=== PATIENT | female | born 1940 ===

== ENCOUNTER 2017-10-05 18:35 | Inpatient (IN) | payer MEDICARE ==
[~2017-10-05] VITALS: Ht 162.6 cm; Wt 58.5 kg
[2017-10-05 19:25] LABS: BASOPHILS # (AUTO) 0.03 x10^3/uL (0-0.1); BASOPHILS % (AUTO) 0 % (0-1); EOSINOPHILS # (AUTO) 0.07 x10^3/uL (0-0.4); EOSINOPHILS % (AUTO) 1 % (1-7); LYMPHOCYTES # (AUTO) 2.35 x10^3/uL (1-3.4); LYMPHOCYTES % (AUTO) 27 % (22-44); MD NO; MEAN CORPUSCULAR HEMOGLOBIN 30.5 pg (27.0-34.8); MEAN CORPUSCULAR HGB CONC 33.5 g/dL (32.4-35.8); MEAN PLATELET VOLUME 7.9 fL (7.4-10.4); MONOCYTES # (AUTO) 0.42 x10^3/uL (0.2-0.8); MONOCYTES % (AUTO) 5 % (2-9); NEUTROPHILS # (AUTO) 5.93 x10^3/uL (1.8-6.8); NEUTROPHILS % (AUTO) 67 % (42-75); PLATELET COUNT 447 x10^3/uL (130-400); RED BLOOD COUNT 4.74 x10^6/uL (3.82-5.3); RED CELL DISTRIBUTION WIDTH 14.1 % (9.6-15.2)
[2017-10-05] MEDS ORDERED: PIOG30TA4 PO (19:29)
[2017-10-05] MEDS ORDERED: HYDR25TA6 PO (19:29)
[2017-10-05] MEDS ORDERED: CALC-47 PO (19:29)
[2017-10-05] MEDS ORDERED: SIMV10TA3 PO (19:29)
[2017-10-05] MEDS ORDERED: LIRA0.6P SQ-INSULIN (19:29)
[2017-10-05] MEDS ORDERED: DAPA1TAB5 PO (19:29)
[2017-10-05] MEDS ORDERED: CHOL200074 PO (19:29)
[2017-10-05] MEDS ORDERED: LOSA25TA5 PO (19:29)
[2017-10-05] MEDS ORDERED: ONDANSETRON 2MG/ML, 2ML IVPush ONE (19:30)
[2017-10-05] MEDS ORDERED: SODIUM CHLORIDE 0.9% 1,000ML IVBOLUS ONE (19:30)
[2017-10-05 19:35] LABS: ALANINE AMINOTRANSFERASE 20 U/L (12-78); CALCIUM 10.2 mg/dL (8.5-10.1); CREATININE 1.51 mg/dL (0.55-1.02)
[2017-10-05 19:38] LABS: ALKALINE PHOSPHATASE 35 U/L (45-117); BILIRUBIN,TOTAL 0.6 mg/dL (0.2-1.0)
[2017-10-05 19:51] LABS: ALBUMIN 4.1 g/dL (3.4-5.0); ANION GAP 14 mmol/L (5-15); CHLORIDE 98 mmol/L (98-107)
[2017-10-05 19:53] LABS: TOTAL PROTEIN 8.1 g/dL (6.4-8.2)
[2017-10-05] MEDS ORDERED: ACETAMINOPHEN 500 MG TABLET PO ONE (20:00)
[2017-10-05 20:36] LABS: CULTURE INDICATED? YES; MICROSCOPIC INDICATED
[2017-10-05] MEDS ORDERED: OMNIPAQUE 350 MG/ML, 100ML BOTTLE ONE (21:40)
[2017-10-05] MEDS ORDERED: ONDANSETRON ODT 4 MG ONE (21:46)
[2017-10-05] MEDS ORDERED: ACETAMINOPHEN 500 MG TABLET ONE (21:46)
[2017-10-05] MEDS ORDERED: CEFTRIAXONE 1,000 MG IM ONE (22:30)
[2017-10-05] MEDS ORDERED: LIDOCAINE-MPF 1%, 2ML ONE (22:31)
[2017-10-05] MEDS ORDERED: CEFTRIAXONE 1,000 MG ONE (22:31)
[2017-10-05] MEDS ORDERED: CEFTRIAXONE PMX 1GM/50ML 50 ML ONE (22:35)
[2017-10-05] MEDS ORDERED: CEFTRIAXONE PMX 1GM/50ML 50 ML IV ONE (23:00)
[2017-10-06] VITALS: BP 104/67
[2017-10-06] MEDS ORDERED: DOCUSATE 100 MG CAPSULE PO PRN
[2017-10-06] MEDS ORDERED: LABETALOL 5MG/ML, 20ML IVPush PRN
[2017-10-06] MEDS ORDERED: BISACODYL 10 MG SUPP PR PRN
[2017-10-06] MEDS ORDERED: ONDANSETRON ODT 4 MG PO PRN
[2017-10-06] MEDS ORDERED: ONDANSETRON 2MG/ML, 2ML IVPush PRN
[2017-10-06 00:28] LABS: HEMOGLOBIN A1C 7.7 % (4.2-6.3)
[2017-10-06] MEDS: SODIUM CHLORIDE 0.9% 1,000 ML IV SCH ×2 (00:44→11:00)
[2017-10-06] MEDS: HEPARIN 5,000 UNITS/ML, 1ML SQ SCH ×3 (00:44→16:00)
[2017-10-06 05:09] LABS: BASOPHILS # (AUTO) 0.03 x10^3/uL (0-0.1); BASOPHILS % (AUTO) 0 % (0-1); EOSINOPHILS # (AUTO) 0.07 x10^3/uL (0-0.4); EOSINOPHILS % (AUTO) 1 % (1-7); LYMPHOCYTES # (AUTO) 2.15 x10^3/uL (1-3.4); LYMPHOCYTES % (AUTO) 36 % (22-44); MD NO; MEAN CORPUSCULAR HEMOGLOBIN 30.2 pg (27.0-34.8); MEAN CORPUSCULAR HGB CONC 33.8 g/dL (32.4-35.8); MEAN CORPUSCULAR VOLUME 89.3 fL (80-100); MEAN PLATELET VOLUME 7.9 fL (7.4-10.4); MONOCYTES # (AUTO) 0.27 x10^3/uL (0.2-0.8); MONOCYTES % (AUTO) 5 % (2-9); NEUTROPHILS # (AUTO) 3.49 x10^3/uL (1.8-6.8); NEUTROPHILS % (AUTO) 58 % (42-75); PLATELET COUNT 388 x10^3/uL (130-400); RED BLOOD COUNT 4.11 x10^6/uL (3.82-5.3); RED CELL DISTRIBUTION WIDTH 13.7 % (9.6-15.2)
[2017-10-06 05:16] LABS: CHLORIDE 103 mmol/L (98-107)
[2017-10-06 05:28] LABS: ALANINE AMINOTRANSFERASE 17 U/L (12-78); ALBUMIN 3.1 g/dL (3.4-5.0); ALKALINE PHOSPHATASE 27 U/L (45-117); ANION GAP 13 mmol/L (5-15); BILIRUBIN,TOTAL 0.4 mg/dL (0.2-1.0); CALCIUM 8.6 mg/dL (8.5-10.1); CHOL/HDL RATIO 1.8; CHOLESTEROL, TOTAL 87 mg/dL (140-239); CREATININE 1.11 mg/dL (0.55-1.02); HDL CHOL % 55 % (28-40); HDL CHOLESTEROL (DIRECT) 48 mg/dL (40-60); LDL CHOLESTEROL,CALCULATED 17 mg/dL (54-169); LDL/HDL RATIO 0.4 (0.5-3.0); TOTAL PROTEIN 6.6 g/dL (6.4-8.2); TRIGLYCERIDES 108 mg/dL (50-200); VLDL CHOLESTEROL 22 mg/dL (0-25)
[2017-10-06] MEDS: INSULIN LISPRO 100 UNITS/ML, PEN SQ-INSULIN SCH ×4 (07:00→21:00)
[2017-10-06 07:25] VITALS: BP 110/65
[2017-10-06] MEDS ORDERED: POTASSIUM CHLORIDE 20 MEQ TAB.ER.PRT PO ONE (07:30)
[2017-10-06] MEDS: SENNA/DOCUSATE TABLET PO SCH (08:45)
[2017-10-06] MEDS: CHOLECALCIFEROL 1,000 UNIT TABLET PO SCH (08:45)
[2017-10-06] MEDS ORDERED: CALCIUM/VITAMIN D3 250-125 TABLET PO SCH (09:00)
[2017-10-06] MEDS ORDERED: CEFTRIAXONE PMX 1GM/50ML 50 ML IV SCH (14:00)
[2017-10-06] MEDS: CEFTRIAXONE 1,000 MG in SODIUM CHLORIDE 0.9% 50 ML IV SCH (14:57)
[2017-10-06] MEDS: NS + 20MEQ KCL 1,000 ML IV SCH (14:58)
[2017-10-06 15:40] VITALS: BP 139/75
[2017-10-06] MEDS ORDERED: hydrALAzine 20 MG/ML, 1ML IV PRN (17:00)
[2017-10-06 18:58] VITALS: BP 121/67
[2017-10-06] MEDS: SIMVASTATIN 10 MG TABLET PO SCH (21:25)
[2017-10-07 00:52] VITALS: BP 116/68
[2017-10-07] MEDS: HEPARIN 5,000 UNITS/ML, 1ML SQ SCH ×3 (00:54→18:33)
[2017-10-07] MEDS: NS + 20MEQ KCL 1,000 ML IV SCH ×2 (00:54→18:33)
[2017-10-07 05:27] LABS: ANION GAP 7 mmol/L (5-15); CALCIUM 8.5 mg/dL (8.5-10.1); CHLORIDE 108 mmol/L (98-107); CREATININE 0.64 mg/dL (0.55-1.02)
[2017-10-07 05:29] LABS: BASOPHILS # (AUTO) 0.04 x10^3/uL (0-0.1); BASOPHILS % (AUTO) 1 % (0-1); EOSINOPHILS # (AUTO) 0.13 x10^3/uL (0-0.4); EOSINOPHILS % (AUTO) 2 % (1-7); LYMPHOCYTES # (AUTO) 2.12 x10^3/uL (1-3.4); LYMPHOCYTES % (AUTO) 39 % (22-44); MD NO; MEAN CORPUSCULAR HEMOGLOBIN 30.5 pg (27.0-34.8); MEAN CORPUSCULAR HGB CONC 33.7 g/dL (32.4-35.8); MEAN CORPUSCULAR VOLUME 90.4 fL (80-100); MEAN PLATELET VOLUME 7.9 fL (7.4-10.4); MONOCYTES # (AUTO) 0.32 x10^3/uL (0.2-0.8); MONOCYTES % (AUTO) 6 % (2-9); NEUTROPHILS # (AUTO) 2.88 x10^3/uL (1.8-6.8); NEUTROPHILS % (AUTO) 53 % (42-75); PLATELET COUNT 343 x10^3/uL (130-400); RED BLOOD COUNT 3.86 x10^6/uL (3.82-5.3)
[2017-10-07 07:20] VITALS: BP 133/73
[2017-10-07] MEDS: INSULIN LISPRO 100 UNITS/ML, PEN SQ-INSULIN SCH ×4 (08:17→20:50)
[2017-10-07] MEDS: SENNA/DOCUSATE TABLET PO SCH (09:00)
[2017-10-07] MEDS: POLYETHYLENE GLYCOL 17 GM PACKET NG SCH (09:18)
[2017-10-07] MEDS: CHOLECALCIFEROL 1,000 UNIT TABLET PO SCH (09:18)
[2017-10-07 14:00] VITALS: BP 130/68
[2017-10-07] MEDS: CEFTRIAXONE 1,000 MG in SODIUM CHLORIDE 0.9% 50 ML IV SCH (14:39)
[2017-10-07 20:01] VITALS: BP 133/71
[2017-10-07] MEDS: SIMVASTATIN 10 MG TABLET PO SCH (21:42)
[2017-10-08] VITALS (7 sets, daily range): BP systolic 103–125; BP diastolic 68–77
[2017-10-08] MEDS: HEPARIN 5,000 UNITS/ML, 1ML SQ SCH (04:34)
[2017-10-08 05:25] LABS: CHLORIDE 109 mmol/L (98-107)
[2017-10-08 05:39] LABS: ANION GAP 7 mmol/L (5-15); CALCIUM 8.6 mg/dL (8.5-10.1); CREATININE 0.48 mg/dL (0.55-1.02)
[2017-10-08] MEDS: INSULIN LISPRO 100 UNITS/ML, PEN SQ-INSULIN SCH ×4 (07:00→19:50)
[2017-10-08] MEDS: SENNA/DOCUSATE TABLET PO SCH (09:00)
[2017-10-08] MEDS: POLYETHYLENE GLYCOL 17 GM PACKET NG SCH (09:00)
[2017-10-08] MEDS: NS + 20MEQ KCL 1,000 ML IV SCH (09:11)
[2017-10-08] MEDS: CHOLECALCIFEROL 1,000 UNIT TABLET PO SCH (09:11)
[2017-10-08] MEDS ORDERED: ENOXAPARIN 40 MG/0.4 ML SQ SCH (12:00)
[2017-10-08] MEDS: SIMVASTATIN 10 MG TABLET PO SCH (20:36)
[2017-10-08 20:50] LABS: TROPONIN I 0.297 ng/mL (0.000-0.045)
[2017-10-08] MEDS ORDERED: NITROGLYCERIN SINGLE TAB 0.4 MG SL ONE (21:00)
[2017-10-08] MEDS ORDERED: SODIUM CHLORIDE 0.9% 1,000 ML IV SCH (21:00)
[2017-10-08] MEDS ORDERED: HEPARIN 25,000 UNITS/500ML PMX 500 ML IV PRN (21:30)
[2017-10-08] MEDS ORDERED: HEPARIN 5,000 UNITS/ML, 1ML IV ONE (21:30)
[2017-10-08] MEDS ORDERED: ASPIRIN 325 MG TABLET PO SCH (21:30)
[2017-10-08] MEDS ORDERED: HEPARIN 5,000 UNITS/ML, 1ML IV PRN (21:30)
[2017-10-08] MEDS ORDERED: NITROGLYCERIN 0.4 MG BOTTLE (25 TABS) SL PRN (21:30)
[2017-10-08] MEDS ORDERED: TICAGRELOR 90 MG TABLET ONE (22:51)
[2017-10-08] MEDS ORDERED: FENTANYL PF 100 MCG/2ML ONE (22:51)
[2017-10-08] MEDS ORDERED: MIDAZOLAM 1 MG/ML, 5ML ONE (22:51)
[2017-10-08] MEDS ORDERED: NITROGLYCERIN 5 MG/ML, 10ML ONE (22:52)
[2017-10-08] MEDS ORDERED: HEPARIN 1,000 UNITS/ML, 10ML ONE (22:52)
[2017-10-08] MEDS ORDERED: BIVALIRUDIN 250 MG ONE (22:52)
[2017-10-09] MEDS ORDERED: HEPARIN 5,000 UNITS/ML, 1ML IV ONE
[2017-10-09] MEDS ORDERED: HEPARIN 5,000 UNITS/ML, 1ML IV PRN
[2017-10-09] MEDS ORDERED: HEPARIN 25,000 UNITS/500ML PMX 500 ML IV PRN
[2017-10-09] MEDS ORDERED: SODIUM CHLORIDE 0.9% 1,000 ML IV SCH ×2 (00:12→21:00)
[2017-10-09] MEDS ORDERED: BIVALIRUDIN 250 MG in DEXTROSE 5% 50 ML IV SCH (00:12)
[2017-10-09 02:15] LABS: ALBUMIN 2.6 g/dL (3.4-5.0); ANION GAP 6 mmol/L (5-15); CHLORIDE 107 mmol/L (98-107); CREATININE 0.55 mg/dL (0.55-1.02)
[2017-10-09 04:00] VITALS: BP 106/67
[2017-10-09] MEDS: ASPIRIN 81 MG TABLET CHEW PO SCH (06:04)
[2017-10-09] MEDS: INSULIN LISPRO 100 UNITS/ML, PEN SQ-INSULIN SCH ×4 (08:33→20:43)
[2017-10-09] MEDS ORDERED: METOPROLOL TARTRATE 25 MG TABLET PO SCH (09:00)
[2017-10-09] MEDS: TICAGRELOR 90 MG TABLET PO SCH ×2 (09:37→20:44)
[2017-10-09] MEDS: POLYETHYLENE GLYCOL 17 GM PACKET NG SCH (09:38)
[2017-10-09] MEDS: CHOLECALCIFEROL 1,000 UNIT TABLET PO SCH (09:38)
[2017-10-09] MEDS: SENNA/DOCUSATE TABLET PO SCH (09:38)
[2017-10-09] MEDS: PIOGLITAZONE 15 MG TABLET PO SCH (12:01)
[2017-10-09] MEDS ORDERED: FUROSEMIDE 20 MG/2 ML IV ONE (13:00)
[2017-10-09] MEDS: ENOXAPARIN 40 MG/0.4 ML SQ SCH (18:10)
[2017-10-09] MEDS: ACETAMINOPHEN 325 MG TABLET PO PRN (20:00)
[2017-10-09] MEDS: SIMVASTATIN 40 MG TABLET PO SCH (20:44)
[2017-10-10 05:05] LABS: BASOPHILS # (AUTO) 0.03 x10^3/uL (0-0.1); BASOPHILS % (AUTO) 0 % (0-1); EOSINOPHILS # (AUTO) 0.14 x10^3/uL (0-0.4); EOSINOPHILS % (AUTO) 2 % (1-7); LYMPHOCYTES # (AUTO) 1.33 x10^3/uL (1-3.4); LYMPHOCYTES % (AUTO) 18 % (22-44); MD NO; MEAN CORPUSCULAR HEMOGLOBIN 30.1 pg (27.0-34.8); MEAN CORPUSCULAR HGB CONC 33.6 g/dL (32.4-35.8); MEAN CORPUSCULAR VOLUME 89.5 fL (80-100); MEAN PLATELET VOLUME 8.2 fL (7.4-10.4); MONOCYTES # (AUTO) 0.42 x10^3/uL (0.2-0.8); MONOCYTES % (AUTO) 6 % (2-9); NEUTROPHILS # (AUTO) 5.31 x10^3/uL (1.8-6.8); NEUTROPHILS % (AUTO) 73 % (42-75); PLATELET COUNT 283 x10^3/uL (130-400); RED BLOOD COUNT 4.14 x10^6/uL (3.82-5.3); RED CELL DISTRIBUTION WIDTH 14.1 % (9.6-15.2)
[2017-10-10 05:11] LABS: ALANINE AMINOTRANSFERASE 23 U/L (12-78); ALBUMIN 2.7 g/dL (3.4-5.0); ANION GAP 9 mmol/L (5-15); CALCIUM 8.7 mg/dL (8.5-10.1); CHLORIDE 108 mmol/L (98-107)
[2017-10-10 05:13] LABS: ALKALINE PHOSPHATASE 40 U/L (45-117); BILIRUBIN,TOTAL 0.4 mg/dL (0.2-1.0); CREATININE 0.63 mg/dL (0.55-1.02)
[2017-10-10] MEDS: ASPIRIN 81 MG TABLET CHEW PO SCH (05:55)
[2017-10-10] MEDS: INSULIN LISPRO 100 UNITS/ML, PEN SQ-INSULIN SCH ×4 (07:00→21:00)
[2017-10-10] MEDS ORDERED: POTASSIUM CHLORIDE 20 MEQ TAB.ER.PRT PO ONE ×2 (07:00→12:00)
[2017-10-10] MEDS: TICAGRELOR 90 MG TABLET PO SCH ×2 (08:18→21:58)
[2017-10-10] MEDS: CHOLECALCIFEROL 1,000 UNIT TABLET PO SCH (08:18)
[2017-10-10] MEDS: SENNA/DOCUSATE TABLET PO SCH (08:18)
[2017-10-10] MEDS: POLYETHYLENE GLYCOL 17 GM PACKET NG SCH (08:18)
[2017-10-10] MEDS: PIOGLITAZONE 15 MG TABLET PO SCH (08:24)
[2017-10-10] MEDS ORDERED: METOPROLOL TARTRATE 25 MG TABLET PO SCH (09:00)
[2017-10-10 13:54] VITALS: BP 100/66
[2017-10-10] MEDS: ENOXAPARIN 40 MG/0.4 ML SQ SCH (17:07)
[2017-10-10] MEDS: ACETAMINOPHEN 325 MG TABLET PO PRN ×2 (17:07→21:59)
[2017-10-10 18:46] VITALS: BP 102/65
[2017-10-10] MEDS: SIMVASTATIN 40 MG TABLET PO SCH (21:59)
[2017-10-11 01:20] VITALS: BP 115/71
[2017-10-11 05:27] LABS: CHLORIDE 108 mmol/L (98-107)
[2017-10-11 05:33] LABS: ALANINE AMINOTRANSFERASE 22 U/L (12-78); ALBUMIN 2.7 g/dL (3.4-5.0); ALKALINE PHOSPHATASE 38 U/L (45-117); ANION GAP 10 mmol/L (5-15); BILIRUBIN,TOTAL 0.5 mg/dL (0.2-1.0); CALCIUM 8.8 mg/dL (8.5-10.1); CREATININE 0.67 mg/dL (0.55-1.02); TOTAL PROTEIN 6.1 g/dL (6.4-8.2)
[2017-10-11] MEDS: ASPIRIN 81 MG TABLET CHEW PO SCH (06:03)
[2017-10-11 06:30] VITALS: BP 113/76
[2017-10-11] MEDS: INSULIN LISPRO 100 UNITS/ML, PEN SQ-INSULIN SCH ×3 (07:00→16:00)
[2017-10-11] MEDS: POLYETHYLENE GLYCOL 17 GM PACKET NG SCH (09:00)
[2017-10-11] MEDS ORDERED: METOPROLOL SUCCINATE 25 MG TAB.ER.24H PO SCH (09:00)
[2017-10-11] MEDS ORDERED: LOSARTAN 25MG TABLET PO SCH (09:00)
[2017-10-11] MEDS: PIOGLITAZONE 15 MG TABLET PO SCH (09:47)
[2017-10-11] MEDS: TICAGRELOR 90 MG TABLET PO SCH (09:49)
[2017-10-11] MEDS: SENNA/DOCUSATE TABLET PO SCH (09:51)
[2017-10-11] MEDS: CHOLECALCIFEROL 1,000 UNIT TABLET PO SCH (09:52)
[2017-10-11 12:29] VITALS: BP 106/72
[2017-10-11] MEDS ORDERED: INSU100I11 SQ-INSULIN (13:02)
[2017-10-11] MEDS ORDERED: TICA90TA PO (13:02)
[2017-10-11] MEDS ORDERED: ACET325T14 PO (13:02)
[2017-10-11] MEDS ORDERED: ASPI-515 PO (13:02)
[2017-10-11] MEDS ORDERED: METO25TA91 PO (13:02)
[2017-10-11] MEDS ORDERED: SIMV40TA3 PO (13:02)
[2017-10-11] MEDS ORDERED: PNEUMOCOCCAL 23 VACCINE IM-VACC ONE (14:00)
== END 2017-10-11 16:40 | DRG 981 ==
LOC: ED 21:17 → EDIP 22:53 → 4WST 23:52 → 5SO 10-08 23:36 → CCU 10-09 00:31 → 5SO 10-10 13:51
PROVIDERS: ADMIT Internal Medicine; ATTEND Internal Medicine
PROC: 027135Z Dilation of Coronary Artery, Two Arteries with Two Drug-eluting Intraluminal Devices, Percutaneous Approach (ICD-10-PCS; principal; 2017-10-09)
PROC: 4A023N7 Measurement of Cardiac Sampling and Pressure, Left Heart, Percutaneous Approach (ICD-10-PCS; 2017-10-09)
PROC: 02713EZ Dilation of Coronary Artery, Two Arteries with Two Intraluminal Devices, Percutaneous Approach (ICD-10-PCS; 2017-10-09)
PROC: B2111ZZ Fluoroscopy of Multiple Coronary Arteries using Low Osmolar Contrast (ICD-10-PCS; 2017-10-09)
PROC: B2151ZZ Fluoroscopy of Left Heart using Low Osmolar Contrast (ICD-10-PCS; 2017-10-09)
DX: N83.292 Other ovarian cyst, left side (principal); I21.4 Non-ST elevation (NSTEMI) myocardial infarction; N17.0 Acute kidney failure with tubular necrosis; N30.01 Acute cystitis with hematuria; E87.1 Hypo-osmolality and hyponatremia; I50.22 Chronic systolic (congestive) heart failure; R79.89 Other specified abnormal findings of blood chemistry; E87.6 Hypokalemia; E11.65 Type 2 diabetes mellitus with hyperglycemia; E83.52 Hypercalcemia; I11.0 Hypertensive heart disease with heart failure; E78.5 Hyperlipidemia, unspecified; D69.6 Thrombocytopenia, unspecified; E86.0 Dehydration; I25.10 Atherosclerotic heart disease of native coronary artery without angina pectoris; I25.5 Ischemic cardiomyopathy; I44.7 Left bundle-branch block, unspecified; N85.8 Other specified noninflammatory disorders of uterus; K59.00 Constipation, unspecified; Z79.82 Long term (current) use of aspirin; Z79.84 Long term (current) use of oral hypoglycemic drugs; Z79.899 Other long term (current) drug therapy; Z83.3 Family history of diabetes mellitus; Z23 Encounter for immunization
CPT/HCPCS: 36415; 74177; 76830; 80048; 80053; 80061; 81001; 82040; 82306; 82962; 83036; 83605; 83735; 84100; 84443; 84484; 85018; 85025; 85520; 86304; 87081; 87086; 90732; 92978; 93005; 93306; 93458; 96361; 96365; 96375; 99156; 99157; C1753; C1760; C1769; C1876; C1894; C9600; J0583; J0696; J1644; J1650; J2250; J2405; J3010; J3480; Q9967; C1725; C1874; C1887; J1815; J1940; J7030